=== PATIENT | male | born 1950 | race Caucasian/White ===

== ENCOUNTER 2019-12-18 01:36 | Outpatient (CLI) | payer MEDICARE, OTHER, SELFPAY ==
[2019-12-18 18:53] LABS: SARS-CoV-2 RNA PCR Negative
== END 2019-12-18 01:37 | disposition home or self-care (01) ==
LOC: ANHCOVIDDT 01:37
PROVIDERS: Visit Provider Internal Medicine Gastroenterology
DX: Z01.812 Encounter for preprocedural laboratory examination (principal); Z20.828 Contact with and (suspected) exposure to other viral communicable diseases
CPT/HCPCS: 87635; C9803; U0003

== ENCOUNTER 2019-12-20 00:18 | Day surgery (SDC) | payer MEDICARE, SELFPAY ==
[2019-12-13 11:51] VITALS: BMI 36.8
[2019-12-20 06:28] VITALS: BP 138/81; PULSE 62; RESP 18; TEMP 36.2; O2SAT 100; BMI 36.4
[2019-12-20] MEDS: LACTATED RINGERS 1,000 ML 150 ML IV CONT (06:47)
--- NOTE | 2019-12-20 07:05 | P.PNAN_ITS ---
Anes - Initial Pre Proc Eval Procedure: Operation Date: 12/20/19 07:30 Proposed Procedures p Screening Colonoscopy - Holland Casper MD Date/Time: 12/20/19 07:05 Surgeon: Holland Casper MD Pre Op Diagnosis: Hx of Colon Polyps Patient Data Age: 69 Gender: M Height: 5 ft 6 in Weight: 102.5 kg Last Vital Signs Temp 97.1 F L 12/20/19 06:28 Pulse 62 12/20/19 06:28 Resp 18 12/20/19 06:28 BP 138/81 12/20/19 06:28 Pulse Ox 100 12/20/19 06:28 Allergies Allergy/AdvReac Type Severity Reaction Status Date / Time nalbuphine Allergy Mild Sweating Verified 12/20/19 06:26 Patient hx anesthesia problems: none Family hx anesthesia problems: none [facility] Past Medical History Medical History (Updated 12/20/19 @ 07:05 by Milo Melvin MD) Cirrhosis Anes - Eval Final PreProcedure Day of Procedure 12/20/19 07:05 Patient weight: obese Heart: regular rate and rhythm Lungs: clear to auscultation Airway: Mallampati scale Last oral intake: >/= 8 hours ASA classification: III Emergent: no Anesthetic plan: proceed Anesthesia type and monitoring: general GIVS and standard monitoring Informed Consent: The patient's anesthetic plan and its attendant risks and benefits were discussed with the patient/family/POA. Questions were solicited and answers provided to the satisfaction of the patient/family/POA.
--- NOTE | 2019-12-20 07:11 | PM.HPGS ---
History of Present Illness History of Present Illness Consent: Risks, benefits, and alternatives have been discussed and questions answered. Patient agrees to proceed with procedure. Chief complaint: Hx of Colon Polyps Narrative: Milo Gage is a 69 year old male referred for screening colonoscopy secondary history of colonic polyps. Last colonoscopy was 4 years ago. Patient has no lower GI tract symptoms. No family history of colon cancer. Patient does have a history of cirrhosis of the liver is followed at [facility]. The risks sent least had a gastroscopy which revealed esophageal and gastric varices. He was started on propranolol 20 mg b.i.d.. male [facility] Past Medical History Medical History Cirrhosis Surgical History Surgical History (Updated 12/20/19 @ 07:08 by Holland Casper MD) H/O rotator cuff surgery Hx of arthroscopic knee surgery Meds Home Medications and Allergies Allergies Allergy/AdvReac Type Severity Reaction Status Date / Time nalbuphine Allergy Mild Sweating Verified 12/20/19 06:26 Vital Signs Vital Signs - 24 hr 12/20/19 06:28 Temperature 36.2 C L Pulse Rate 62 Respiratory Rate 18 Blood Pressure 138/81 Pulse Oximetry 100 Exam Const: Orientation/consciousness: patient oriented x3 Resp: Auscultation: clear to auscultation bilaterally Cardio: Rate: regular rate Rhythm: regular rhythm Heart sounds: no murmurs GI: GI Palp: Yes Soft to palpation, No Tenderness to palpation present (GI), Yes No hepatosplenomegaly present and No Palpable mass present Auscultation: normal bowel sounds Neuro: General: patient oriented x3 and no focal motor deficits Extrem: General: no pedal edema Assessment and Plan Additional Plan Screening colonoscopy secondary history of colonic polyps
[2019-12-20] MEDS: SIMETHICONE ORAL SUSPENSION 20 MG/0.3 ML 30 ML BOTTLE 0.6 ML IRRIGATION (07:41)
[2019-12-20 07:49] VITALS: BP 100/48; PULSE 63; RESP 14; O2SAT 99
[2019-12-20 07:59] VITALS: BP 110/52; PULSE 60; RESP 16; O2SAT 99
[2019-12-20 08:09] VITALS: BP 119/70; PULSE 72; RESP 20; O2SAT 99
== END 2019-12-20 08:20 | disposition home or self-care (01) ==
PROVIDERS: PCP Family Medicine; Visit Provider Internal Medicine Gastroenterology
PROC: 0DJD8ZZ Inspection of Lower Intestinal Tract, Via Natural or Artificial Opening Endoscopic (ICD-10-PCS; CPT 45378; principal; 2019-12-20 07:30)
DX: Z12.11 Encounter for screening for malignant neoplasm of colon (principal); K64.1 Second degree hemorrhoids; D17.5 Benign lipomatous neoplasm of intra-abdominal organs; Z86.010 Personal history of colon polyps; K74.60 Unspecified cirrhosis of liver; E66.9 Obesity, unspecified; Z68.36 Body mass index [BMI] 36.0-36.9, adult
CPT/HCPCS: G0105; J2704; J7120